=== PATIENT | male | born 1950 | race American Indian/Alaskan Native ===

== ENCOUNTER 2018-06-19 10:43 | Outpatient (CLI) | payer BC, MEDICARE ==
--- NOTE | 2018-06-19 11:31 | XRay Report ---
RIGHT KNEE, 3 views: History: Pain in right knee. No comparison. Metallic plate and 4 screws are identified in the medial proximal tibia, correlate with surgical history. No obvious lucency surrounding the hardware. There are severe osteoarthritic changes in the medial compartment and patellofemoral space. Near-complete loss of joint space is present. There is relative sparing of the lateral compartment. Small joint effusion is noted on lateral image. IMPRESSION: Surgical changes as described. Correlate with history. Severe bicompartmental osteoarthritis. Small joint effusion.
== END 2018-06-19 10:44 | disposition home or self-care (01) ==
LOC: XRAY 10:43
PROVIDERS: ATTEND Orthopaedic Surgery
DX: M17.11 Unilateral primary osteoarthritis, right knee (principal); M25.461 Effusion, right knee

== ENCOUNTER 2018-08-17 05:40 | Inpatient (IN) | payer MEDICARE ==
[2018-08-08 10:08] LABS: Basophils % (Auto) 0.9 % (0.0-1.8); Eosinophils # (Auto) 0.1 K/mm3 (0.0-0.4); Eosinophils % (Auto) 2.4 % (0.0-4.3); Hematocrit 44.8 % (35.5-45.6); Hemoglobin 15.3 gm/dl (11.8-15.2); Lymphocytes # (Auto) 1.8 K/mm3 (1.2-5.4); Lymphocytes % (Auto) 33.7 % (13.4-35.0); Mean Corpuscular HGB Conc 34 % (32-34); Mean Corpuscular Volume 90 fl (84-94); Monocytes # (Auto) 0.4 K/mm3 (0.0-0.8); Monocytes % (Auto) 7.6 % (0.0-7.3); Platelet Count 207 K/mm3 (140-440); Red Blood Count 4.99 M/mm3 (3.65-5.03); Red Cell Distribution Width 14.5 % (13.2-15.2)
[2018-08-08 10:18] LABS: INR 0.87 (0.87-1.13)
[2018-08-08 10:19] LABS: Partial Thromboplastin Time 24.7 Sec. (24.2-36.6)
[2018-08-08 10:39] LABS: Alanine Aminotransferase 34 units/L (7-56); Albumin 4.3 g/dL (3.9-5); BUN/Creatinine Ratio 9; Blood Urea Nitrogen 6 mg/dL (9-20); Calcium 9.4 mg/dL (8.4-10.2); Hemolysis Index 10
[~2018-08-17 05:40] MED LIST: NACL 0.9% IR ONE; WATER FOR IRRIG STERILE IR ONE
[2018-08-17] MEDS ORDERED: VERSED IV NR (06:00)
[2018-08-17] MEDS ORDERED: SUBLIMAZE IV PRN (06:00)
[2018-08-17] MEDS ORDERED: NEURONTIN PO NR (06:00)
[2018-08-17] MEDS ORDERED: NACL BACTERIOSTATIC INFILTRATI ONE (06:38)
[2018-08-17] MEDS: LACTATED RINGERS 1,000 ML IV SCH ×2 (07:05→14:20)
[2018-08-17] MEDS ORDERED: MARCAINE 0.5% INFILTRATI ONE ×2 (07:23→07:41)
[2018-08-17] MEDS ORDERED: MARCAINE-EPI 0.5%-1:200,000 INFILTRATI ONE (07:24)
[2018-08-17] MEDS ORDERED: TORADOL ONE (07:24)
[2018-08-17] MEDS ORDERED: NACL 0.9% 100 ML ONE (07:25)
[2018-08-17] MEDS ORDERED: TRANEXAMIC ACID ONE (07:25)
[2018-08-17] MEDS ORDERED: MORPHINE ONE (07:25)
[2018-08-17] MEDS ORDERED: DECADRON ONE (07:41)
--- NOTE | 2018-08-17 08:49 | Anesthesia Consultation ---
Anesthesia Consult and Med Hx Date of service: 08/17/18 - Airway Anesthetic Teeth Evaluation: Partials ROM Head & Neck: Adequate Mental/Hyoid Distance: Adequate Mallampati Class: Class III Intubation Access Assessment: Possibly Difficult - Pulmonary Exam CTA: Yes - Cardiac Exam Cardiac Exam: RRR - Pre-Operative Health Status ASA Pre-Surgery Classification: ASA3 Proposed Anesthetic Plan: General Nerve Block: adductor canal - Pulmonary Hx Smoking: No Hx Respiratory Symptoms: No Hx Sleep Apnea: No (ROJAS PRE SCREEN HIGH RISK) - Cardiovascular System Hx Hypertension: Yes (last dose losartan 08/15/18) Hx Heart Attack/AMI: No Hx Percutaneous Transluminal Coronary Angioplasty (PTCA): No Hx Cardia Arrhythmia: No - Central Nervous System Hx Seizures: No CVA: No - Gastrointestinal Hx Gastroesophageal Reflux Disease: No - Endocrine Hx Renal Disease: No Hx Liver Disease: No Hx Insulin Dependent Diabetes: No Hx Non-Insulin Dependent Diabetes: No Hx Thyroid Disease: No - Other Systems Hx Obesity: Yes - Additional Comments Anesthesia Medical History Comments: No hx anesthetic complications. Consented for adductor canal block.
--- NOTE | 2018-08-17 08:50 | Anesthesia Day of Surgery ---
Anesthesia Day of Surgery - Day of Surgery Patient Examined: Yes Patient H&P Reviewed: Yes Patient is NPO: Yes
[2018-08-17] MEDS ORDERED: WATER FOR IRRIG STERILE IR ONE (09:00)
[2018-08-17] MEDS ORDERED: NACL 0.9% IR ONE (09:49)
[2018-08-17] MEDS ORDERED: ZOFRAN IV PRN (11:17)
[2018-08-17] MEDS ORDERED: DULCOLAX PR PRN (11:17)
--- NOTE | 2018-08-17 11:26 | Procedure Note ---
Date of procedure: 08/17/18 Pre-op diagnosis: severe arthritis right knee Post-op diagnosis: same Procedure: Right total knee replacement and removal of retained hardware right tibia Procedure The patient was brought to the OR after being given a possible nerve block and preoperative holding he was placed on the OR table supine position following induction elevation of anesthesia the patient is right lower extremity was prepped and draped in the usual sterile manner. A timeout procedure was done to identify the patient in the correct operative site. With the knee flexed at 90 for a couple of minutes a midline incision was made over the patella was taken down distally towards the tibial tubercle and proximal tibia using a tunneling subcuticular subcuticular approach the metal hardware was seen along the medial border of the proximal tibia using screwdrivers osteotome and the Bovie the bony and soft tissue overlying the metallic plate was removed followed by extraction of 4 bone screws and a metallic plate, Next the medial retinaculum was incised and the patella was inverted examination of the patient's knee joint revealed typical osteoarthritic changes with large bone spurs noted primarily in the medial compartment both the femoral and tibial's articular surfaces exhibited bare bone and large peripheral osteophytes next a large drill bit was used to enter the medullary canal this was followed by placement of the distal femoral cutting Franki the distal femur was resected approximately 8-9 mm of bone was removed at this time. Attention was turned to the patient's proximal tibia using a external alignme guide the bone was cut using the medial surface as the low point of care was taken to protect the medial collateral ligaments the tibial articular surface was resected and a #5 tibial based ray was selected this was followed by placement of the fixation hole or keel into the proximal tibial artery medullary canal. Attention was turned to the distal femur and using a 4 and 1 cutting block a 5 component was selected AP anterior and posterior as well as Rueda cuts were made a 5 tibial ostomy femoral component was placed and the knee was then taken to a range of motion she appeared to have stability in both the flexion and extension FOLLOWING this the trial components were removed the knee was then copiously irrigated any remaining soft tissue and bony debris were removed at this time next the cement was next and following this the tibial components were inserted beginning with the based ray followed by the polyethylene insert The femoral component was added the excess were removed the knee was held in extension until the cement hardened following hardening of cement the knee was then brought back into of flexion any remaining soft tissue and bony debris were removed at this time. The wound again was irrigated and was closed in a standard routine fashion. Dressings were applied the patient tolerated the procedure there were no complications she was then taken to post anesthesia recovery Anesthesia: MAC, regional Surgeon: KALA MARINA Bait Maker: JAIME CAIN Estimated blood loss: minimal Pathology: none Condition: stable Disposition: PACU
[2018-08-17] MEDS ORDERED: SODIUM CHLORIDE FLUSH SYRINGE 10 ML IV NR (12:00)
[2018-08-17] MEDS ORDERED: APRESOLINE IV PRN (12:08)
[2018-08-17] MEDS ORDERED: APRESOLINE ONE (12:18)
[2018-08-17] MEDS: DILAUDID IV PRN ×2 (12:55→13:10)
[2018-08-17] MEDS ORDERED: DILAUDID ONE (12:59)
--- NOTE | 2018-08-17 15:27 | Post Anesthesia Evaluation ---
- Post Anesthesia Evaluation Patient Participated: Yes Airway Patent: Yes Stable Respiratory Function: Yes Nausea/Vomiting: No Temp > 96.8F: Yes Pain Manageable: Yes Adequeate Hydration: Yes Anesthesia Complications: No Block Receding Appropriately: No (block for postoperative analgesia)
[2018-08-17] MEDS: MORPHINE IV PRN (22:33)
[2018-08-18] MEDS: LACTATED RINGERS 1,000 ML IV SCH (02:00)
[2018-08-18] MEDS: MORPHINE IV PRN ×2 (04:04→08:31)
[2018-08-18 04:41] LABS: Hematocrit 39.1 % (35.5-45.6); Hemoglobin 13.1 gm/dl (11.8-15.2)
--- NOTE | 2018-08-18 09:34 | Progress Note ---
Assessment and Plan Status post right total knee replacement postop day 1 doing well Begin physical therapy continue observation Subjective Date of service: 08/18/18 Interval history: Feeling a little nauseous otherwise okay Objective Vital signs: Vital Signs - 12hr 08/17/18 08/17/18 08/18/18 22:00 22:33 00:06 Temperature 98.3 F Pulse Rate 108 H Respiratory 20 18 20 Rate Blood Pressure 136/70 Blood Pressure [Left] O2 Sat by Pulse 95 Oximetry 08/18/18 08/18/18 08/18/18 04:03 04:04 07:15 Temperature 98.7 F 99.5 F Pulse Rate 104 H 109 H Respiratory 20 20 18 Rate Blood Pressure 137/62 Blood Pressure 162/80 [Left] O2 Sat by Pulse 94 98 Oximetry 08/18/18 09:10 Temperature Pulse Rate Respiratory Rate Blood Pressure Blood Pressure [Left] O2 Sat by Pulse 97 Oximetry Narrative Exam: Postoperative dressings intact negative Homans sign distal neurovascular status intact - Labs CBC & BMP: 08/18/18 04:12 08/08/18 09:25
[2018-08-18] MEDS ORDERED: LOVENOX SUB-Q SCH (10:00)
[2018-08-18] MEDS: NORCO 5/325 PO PRN ×2 (11:20→17:40)
[2018-08-18] MEDS: LOVENOX SUB-Q SCH (11:25)
[2018-08-19] MEDS: NORCO 5/325 PO PRN ×3 (00:18→21:51)
--- NOTE | 2018-08-19 01:01 | XRay Report ---
PROCEDURE: XR KNEE 1-2V RT TECHNIQUE: Portable AP and lateral projections of the right knee. HISTORY: Postoperative evaluation. COMPARISONS: Radiographs dated June 19, 2018. FINDINGS: Interval removal of medial proximal tibial plate and screw fixation interval total knee arthroplasty. The tibial and femoral components appear well seated. Expected soft tissue swelling, subcutaneous gas and joint effusion. IMPRESSION: 1. Interval removal of medial plate and screw fixation of the proximal tibia and total knee arthropla sty. No findings of hardware complication. 2. Expected postsurgical changes including joint effusion, subcutaneous swelling and gas. This document is electronically signed by Antonio Bennett DO., August 19 2018 12:59:34 AM ET
[2018-08-19] MEDS: LOVENOX SUB-Q SCH (09:17)
--- NOTE | 2018-08-19 12:18 | Progress Note ---
Assessment and Plan Status post right total knee replacement postop day 1 doing well Begin physical therapy continue observation Subjective Date of service: 08/19/18 Interval history: no c/o's noted doing well Objective Vital signs: Vital Signs - 12hr 08/19/18 08/19/18 08/19/18 04:58 07:50 11:00 Temperature 98.9 F 100.7 F H 97.4 F L Pulse Rate 107 H 116 H Respiratory 18 19 Rate Blood Pressure 148/77 Blood Pressure 138/63 [Left] O2 Sat by Pulse 97 Oximetry 08/19/18 11:40 Temperature 97.9 F Pulse Rate 53 L Respiratory 19 Rate Blood Pressure Blood Pressure 152/61 [Left] O2 Sat by Pulse 95 Oximetry Narrative Exam: right knee - post op dressing removed incision intact no drainage noted, neg Brittney's sign - Labs CBC & BMP: 08/18/18 04:12 08/08/18 09:25
[2018-08-20] MEDS: NORCO 5/325 PO PRN (09:07)
[2018-08-20] MEDS: LOVENOX SUB-Q SCH (09:08)
[2018-08-20 16:11] VITALS: BP 134/79
--- NOTE | 2018-08-20 18:59 | Discharge Summary ---
Providers - Providers Date of Admission: 08/17/18 11:17 Date of discharge: 08/20/18 Attending physician: KALA MARINA MD 08/17/18 11:17 Consult to Case Management [CONS] Routine Services Needed at Discharge: Home Health Services Physical Therapy DME Equipment Notified:: PURCHASING ADMINISTRATOR 08/17/18 11:23 Physical Therapy Evaluation and Treat [CONS] Routine Comment: Reason For Exam: postop evaluation Weight bearing status?: Full wt bearing Assistive devices?: Yes If so list: Walker Primary care physician: LILLY GROSS Hospitalization Reason for admission: Severe osteoarthritis right knee Condition: Stable Procedures: Right total knee replacement Hospital course: 68 y/o male with complaints of severe right knee pain and stiffness for past several years, history of prior high tibial osteotomy 15 years ago. Plain xrays revealed finding consistent with severe OA and prior HTO with retained hardware. Admitted and taken to the OR where right total knee performed without complications. Post op seen by physical therapy where given instruction on range of motion and strengthening exercises for the right lower extremity. Arrangements were made with case management for home physical therapy and DME's Disposition: DC-30 STILL A PATIENT Core Measure Documentation - Palliative Care Palliative Care/ Comfort Measures: Not Applicable - Core Measures Any of the following diagnoses?: none - VTE Discharge Requirements Deep Vein Thrombosis/Pulmonary Embolism Present on Admission: No Has pt received <5 days of overlap therapy or INR<2.0: No Anticoagulant overlap therapy prescribed at discharge: Yes - Acute VT Discharge Requirements Aspirin at discharge: No Reason for no aspirin on DC: Medical contraindication CARMELLA/ARB for LVSD if EF <40%: No Reason for no CARMELLA/ARB: Medical contraindication Beta romy at discharge: No Reason for no beta romy on DC: Medical contraindication Reason for no statin on DC: Medical contraindication Exam - Physical Exam Narrative exam: right knee - post op dressing removed incision intact no drainage noted, neg Brittney's sign - Constitutional Vitals: Temp Pulse Resp BP Pulse Ox 99.1 F 103 H 18 134/79 99 08/20/18 15:58 08/20/18 15:58 08/20/18 15:58 08/20/18 15:58 08/20/18 15:58 General appearance: Present: no acute distress, well-nourished - EENT Eyes: Present: PERRL ENT: hearing intact, clear oral mucosa - Neck Neck: Present: supple, normal ROM - Respiratory Respiratory effort: normal Respiratory: bilateral: CTA - Cardiovascular Heart Sounds: Present: S1 & S2. Absent: rub, click - Extremities Extremities: pulses symmetrical, No edema Peripheral Pulses: within normal limits - Abdominal General gastrointestinal: Present: soft, non-tender, non-distended, normal bowel sounds Male genitourinary: Present: normal - Integumentary Integumentary: Present: clear, warm, dry - Musculoskeletal Musculoskeletal: gait normal, strength equal bilaterally - Psychiatric Psychiatric: appropriate mood/affect, intact judgment & insight - Neurologic Neurologic: CNII-XII intact, moves all extremities Plan Activity: advance as tolerated Weight Bearing Status: Weight Bear as Tolerated Diet: regular Wound: keep clean and dry Special Instructions: physical therapy Durable Medical Equipment Needed Upon Discharge: Walker-Standard Follow up with: LILLY GROSS JR, MD [Primary Care Provider] - 7 Days Prescriptions: Apixaban [Eliquis] 2.5 mg PO BID #42 tablet oxyCODONE /ACETAMINOPHEN [Percocet 5/325] 1 tab PO Q4HR #30 tab
== END 2018-08-20 19:18 | disposition home health service (06) | DRG 470 ==
LOC: OR 05:40 → EDSTATUS 11:15 → 3B-SURG 11:17
PROVIDERS: ADMIT Orthopaedic Surgery; ATTEND Orthopaedic Surgery
PROC: 0SRC0J9 Replacement of Right Knee Joint with Synthetic Substitute, Cemented, Open Approach (ICD-10-PCS; principal; 2018-08-17)
PROC: 0QPG04Z Removal of Internal Fixation Device from Right Tibia, Open Approach (ICD-10-PCS; 2018-08-17)
DX: M17.11 Unilateral primary osteoarthritis, right knee (principal); I10 Essential (primary) hypertension; E66.9 Obesity, unspecified; M81.0 Age-related osteoporosis without current pathological fracture; K21.9 Gastro-esophageal reflux disease without esophagitis; Z79.82 Long term (current) use of aspirin; Z68.35 Body mass index [BMI] 35.0-35.9, adult; Z96.652 Presence of left artificial knee joint
CPT/HCPCS: 36415; 64450; 80053; 85014; 85018; 85025; 85610; 85730; 88302; 88304; 88309; 88311; 94760; G0378; A4217; C1776; J0360; J1100; J1170; J1650; J1885; J2250; J2270; J2405; J3010; J7120